=== PATIENT | female | born 1980 | race Caucasian/White ===

== ENCOUNTER 2017-05-30 14:14 | Emergency (ER) | payer SELFPAY ==
[~2017-05-30] VITALS: Ht 162.6 cm; Wt 57.0 kg
[~2017-05-30 14:14] MED LIST: ALPR0.25 PO; METH10CO4 PO
[2017-05-30 14:16] VITALS: BP 130/87; PULSE 97; RESP 20; TEMP 99.9; O2SAT 100
== END 2017-05-30 16:44 | disposition left against medical advice (07) ==
LOC: NED 14:14
DX: R51 Headache (principal); Z53.21 Procedure and treatment not carried out due to patient leaving prior to being seen by health care provider
CPT/HCPCS: 99281